=== PATIENT | male | born 1960 | race Caucasian/White ===

== ENCOUNTER 2023-07-27 13:04 | Day surgery (SDC) | payer BC ==
[2023-07-20 12:02] LABS: BASOPHILS % (AUTO) 0.5 % (0-1); EOSINOPHILS # (AUTO) 0.1 X10'3 (0-0.9); HEMATOCRIT 51.4 % (42.0-52.0); HEMOGLOBIN 17.2 g/dl (14.0-17.9); LYMPHOCYTES # (AUTO) 1.4 X10'3 (1.1-4.8); LYMPHOCYTES % (AUTO) 23.4 % (21-51); MEAN CORPUSCULAR HEMOGLOBIN 30.7 PG (27.0-31.0); MEAN CORPUSCULAR HGB CONC 33.5 g/dL (33.0-36.5); MEAN CORPUSCULAR VOLUME 91.6 FL (78-98); MEAN PLATELET VOLUME 9.7 FL (7.4-10.4); MONOCYTES # (AUTO) 0.7 X10'3 (0-0.9); NEUTROPHILS # (AUTO) 3.8 X10'3 (1.8-7.7); NEUTROPHILS % (AUTO) 62.1 % (42-75); PLATELET COUNT 166 X10'3 (140-440); RED BLOOD COUNT 5.61 X10'6 (4.70-6.10); RED CELL DISTRIBUTION WIDTH 13.9 % (11.5-14.5); WHITE BLOOD COUNT 6.1 X10'3 (4.5-11.0)
[2023-07-20 12:15] LABS: APTT 29 SECONDS (22-32); INR 1.2 INR; PROTHROMBIN TIME 12.4 SECONDS (9.0-12.0)
[2023-07-20 12:20] LABS: ALBUMIN 3.8 G/DL (3.4-5.0); ANION GAP 5 (8-16); BLOOD UREA NITROGEN 21 MG/DL (7-18); BUN/CREATININE RATIO 20.4 (10.0-20.0); CALCIUM 9.2 MG/DL (8.5-10.1); CHLORIDE 103 MMOL/L (99-107); CHOL/HDL RATIO 4.1 (0.00-4.99); CHOLESTEROL 142 MG/DL (0-200); CREATININE 1.03 MG/DL (0.60-1.10); GLUCOSE 89 MG/DL (70-104); HDL CHOLESTEROL 35 MG/DL (35-60); LDL CHOLESTEROL 85 MG/DL (50-100); POTASSIUM 3.8 MMOL/L (3.5-5.1); SODIUM 139 MMOL/L (135-145); TOTAL CARBON DIOXIDE 30.9 MMOL/L (24-32); TRIGLYCERIDES 108 MG/DL (20-135); eGFR 74 ML/MIN
[2023-07-27] VITALS (8 sets, daily range): BP systolic 104–136; BP diastolic 74–84; PULSE 72–86; RESP 14–16; TEMP 98; O2SAT 77–98
[~2023-07-27] VITALS: Ht 154.9 cm; Wt 88.7 kg
[2023-07-27] MEDS ORDERED: normal saline 1,000 ML IV SCH (13:20)
[2023-07-27] MEDS ORDERED: LORazepam 0.5 MG tablet PO PRN (13:20)
[2023-07-27] MEDS ORDERED: diphenhydrAMINE 25mg capsule PO PRN (13:20)
[2023-07-27] MEDS ORDERED: SACU1TAB PO (13:32)
[2023-07-27] MEDS ORDERED: EMPA10TA PO (13:32)
[2023-07-27] MEDS ORDERED: DOXY50TA13 (13:32)
[2023-07-27] MEDS ORDERED: ATOR20TA66 PO (13:32)
[2023-07-27] MEDS ORDERED: ANAS1TAB10 PO (13:32)
[2023-07-27] MEDS ORDERED: SPIR25TA5 PO (13:32)
[2023-07-27] MEDS ORDERED: METO-384 PO (13:32)
[2023-07-27] MEDS ORDERED: verapamil 2.5 mg/ml inj IV ONE (14:15)
[2023-07-27] MEDS ORDERED: midazolam 1 mg/ML 2ml injection ONE ×2 (14:15→14:45)
[2023-07-27] MEDS ORDERED: fentaNYL/PF 50MCG/1 ML 2ML syringe ONE (14:15)
[2023-07-27] MEDS ORDERED: iohexol 350MG/ML 100ml bottle IV ONE (14:15)
[2023-07-27] MEDS ORDERED: LIDOcaine 1% (10mg/ml) 2ml vial ONE (14:15)
[2023-07-27] MEDS ORDERED: heparin 1,000unit/ml 10ml vial 10 ML ONE (14:15)
[2023-07-27] MEDS ORDERED: nitroGLYCERIN 500mcg/5mL D5W 5 ML IV ONE (14:19)
[2023-07-27] MEDS ORDERED: ondansetron/PF 4mg/2ml inj IV PRN (15:25)
[2023-07-27] MEDS ORDERED: normal saline 1000ml 1,000 ML IV SCH (15:25)
[2023-07-27] MEDS ORDERED: proCHLORperazine 10 MG/2 ml inj IV PRN (15:30)
[2023-07-27] MEDS ORDERED: HYDROcodone/acetaminophen 5mg/325mg tablet PO PRN (15:30)
[2023-07-27] MEDS ORDERED: HYDROcodone/acetaminophen 10/325mg tab PO PRN (15:30)
[2023-07-27] MEDS ORDERED: OXAZEpam 15mg capsule PO PRN (15:30)
== END 2023-07-27 17:35 | disposition home or self-care (01) ==
LOC: SSTAY O 13:04
PROVIDERS: ATTEND Student in an Organized Health Care Education/Training Program
DX: I35.0 Nonrheumatic aortic (valve) stenosis (principal); I44.7 Left bundle-branch block, unspecified; I50.9 Heart failure, unspecified; I65.29 Occlusion and stenosis of unspecified carotid artery; I44.30 Unspecified atrioventricular block; Z79.899 Other long term (current) drug therapy; Z95.810 Presence of automatic (implantable) cardiac defibrillator
CPT/HCPCS: 36415; 80048; 80061; 85025; 85610; 85730; 93005; 93454; 99152; J1644; J2250; J3010; J3490; J7030; Q0163; Q9967; A6258; A6402; A6449; C1751; C1894